=== PATIENT | female | born 1985 ===

== ENCOUNTER → 2018-03-01 | Outpatient (CLI) | payer BC ==
[~2018-03-01] MED LIST: AMIT75 PO; AMPYRA10 MG PO
[2018-03-01 16:16] LABS: Source, Urine Clean Catch
[2018-03-01 16:27] LABS: Appearance, Urine Clear (Clear); Bilirubin, Urine Neg (Neg); Blood, Urine Neg (Neg); Color, Urine Yellow (P-Yellow); Glucose Qualitative, Urine Neg (Neg); Ketones, Urine Neg (Neg); Leukocyte Esterase, Urine 1+ (Neg); Nitrite, Urine Neg (Neg); Protein, Urine Neg (Neg); Urobilinogen, Urine NORM (Normal); pH, Urine 6.5 (5.0-8.0)
[2018-03-01 16:35] LABS: Bacteria Few /hpf; Red Blood Cells, Urine 0-2 /hpf (0-2); Squamous Epithelial Cells Mod /hpf (Few)
== END | disposition home or self-care (01) ==
LOC: LAB 16:13 → LAB SHORT 16:13
PROVIDERS: Family Medicine
DX: R10.2 Pelvic and perineal pain (principal)
CPT/HCPCS: 81001; 87086; 87147

== ENCOUNTER → 2018-04-29 | Outpatient (CLI) | payer BC | LOC: LAB 11:35 → LAB SHORT 11:35 | DX: N39.0 Urinary tract infection, site not specified (principal) | CPT/HCPCS: 87086 ==

== ENCOUNTER → 2018-08-07 | Outpatient (CLI) | payer BC | END | disposition home or self-care (01) | LOC: LAB SHORT 16:57 → LAB 16:57 | DX: R30.0 Dysuria (principal) | CPT/HCPCS: 87077; 87086; 87186 ==

== ENCOUNTER → 2018-08-17 | Outpatient (CLI) | payer BC ==
[2018-08-18 15:01] LABS: Candida species (DNA Probe) Negative (NEGATIVE); G. vaginalis (DNA Probe) Negative (NEGATIVE); T. vaginalis (DNA Probe) Negative (NEGATIVE)
[2018-08-22 02:12] LABS: CHLAMYDIA TRACHOMATIS, NAA Negative (Negative); NEISSERIA GONORRHOEAE, NAA Negative (Negative)
== END ==
LOC: LAB 16:45 → LAB SHORT 16:45
PROVIDERS: Nurse Practitioner Family
DX: Z11.3 Encounter for screening for infections with a predominantly sexual mode of transmission (principal); N39.0 Urinary tract infection, site not specified; N89.8 Other specified noninflammatory disorders of vagina
CPT/HCPCS: 87077; 87086; 87186; 87480; 87491; 87510; 87591; 87660

== ENCOUNTER 2018-08-18 14:40 | Emergency (ER) | payer BC ==
[~2018-08-18] VITALS: Ht 160 cm; Wt 65.8 kg
[2018-08-18 15:19] LABS: BASOPHILS ABSOLUTE AUTO 0.03 K/mm3 (0.00-0.23); BASOPHILS PERCENT AUTO 1 % (0-2); EOSINOPHILS ABSOLUTE AUTO 0.05 K/mm3 (0.00-0.68); EOSINOPHILS PERCENT AUTO 1 % (0-6); Hematocrit 41.4 % (33.0-51.0); Hemoglobin 13.5 g/dL (11.5-16.0); IMMATURE GRAN ABSOLUTE AUTO 0.03 K/mm3 (0.00-0.10); IMMATURE GRAN PERCENT AUTO 1 % (0-1); LYMPHOCYTES ABSOLUTE AUTO 1.02 K/mm3 (0.84-5.20); LYMPHOCYTES PERCENT AUTO 19 % (21-46); MONOCYTES ABSOLUTE AUTO 0.52 K/mm3 (0.16-1.47); MONOCYTES PERCENT AUTO 10 % (4-13); Mean Corpuscular HGB 29.8 pg (26.0-34.0); Mean Corpuscular HGB Conc 32.6 g/dL (31.5-36.5); Mean Corpuscular Volume 91 fL (80-100); Mean Platelet Volume 10.6 fL (9.1-12.4); NEUTROPHILS ABSOLUTE AUTO 3.84 K/mm3 (1.96-9.15); NEUTROPHILS PERCENT AUTO 70 % (41-73); Platelet Count 244 K/mm3 (150-400); RDW Coefficient Variation 13.4 % (11.7-14.2); Red Blood Cell Count 4.53 M/mm3 (3.80-5.20); White Blood Cell Count 5.49 K/mm3 (4.00-11.30)
[2018-08-18 15:41] LABS: Alanine Aminotransfer (ALT/SGP 25 U/L (12-78); Albumin, Blood 3.8 g/dL (3.4-5.0); Albumin/Globulin Ratio 1.1 (0.8-1.8); Alk Phos 87 U/L (50-136); Anion Gap 10 mmol/L (6-16); Aspartate Aminotrans (AST/SGOT 21 U/L (12-37); Bilirubin, Total 0.4 mg/dL (0.1-1.0); Blood Urea Nitrogen 13 mg/dL (8-24); Bun/Creatinine Ratio 17.1 (12.0-20.0); CO2, Blood 24 mmol/L (21-32); Calcium, Blood 8.7 mg/dL (8.5-10.1); Chloride, Blood 105 mmol/L (98-108); Creatinine, Blood 0.76 mg/dL (0.40-1.00); Globulin, Blood 3.6 g/dL (2.2-4.0); Glomerular Filtration Rate >60 (60-); Glucose, Blood 96 mg/dL (70-99); Potassium, Blood 3.8 mmol/L (3.5-5.5); Sodium, Blood 139 mmol/L (136-145); Total Protein, Blood 7.4 g/dL (6.4-8.2)
[2018-08-18 15:59] LABS: Source, Urine Clean Catch
[2018-08-18 16:08] LABS: Appearance, Urine Hazy (Clear); Bilirubin, Urine Neg (Neg); Blood, Urine 1+ (Neg); Color, Urine Yellow (P-Yellow); Glucose Qualitative, Urine Neg (Neg); Ketones, Urine 4+ (Neg); Leukocyte Esterase, Urine 1+ (Neg); Nitrite, Urine Neg (Neg); Protein, Urine 2+ (Neg); Urobilinogen, Urine NORM (Normal)
[2018-08-18 16:20] LABS: Bacteria Few /hpf; Red Blood Cells, Urine 0-2 /hpf (0-2); Squamous Epithelial Cells Mod /hpf (Few)
== END 2018-08-18 17:20 | disposition home or self-care (01) ==
LOC: ER 14:40
PROVIDERS: Emergency Medicine
DX: R00.0 Tachycardia, unspecified (principal); N39.0 Urinary tract infection, site not specified; I05.0 Rheumatic mitral stenosis; Z88.0 Allergy status to penicillin; Z91.040 Latex allergy status; Z79.899 Other long term (current) drug therapy
CPT/HCPCS: 36415; 80053; 81001; 83605; 84484; 85025; 87077; 87086; 87186; 93005; 93010; 96360; 99283-25; J7030

== ENCOUNTER → 2018-09-24 | Outpatient (CLI) | payer BC | END | disposition home or self-care (01) | LOC: LAB 10:18 → LAB SHORT 10:18 | DX: N39.0 Urinary tract infection, site not specified (principal) | CPT/HCPCS: 87086 ==

== ENCOUNTER → 2018-11-02 | Outpatient (CLI) | payer BC | LOC: LAB 13:00 → LAB SHORT 13:00 | DX: N39.0 Urinary tract infection, site not specified (principal) | CPT/HCPCS: 87077; 87086; 87186 ==

== ENCOUNTER → 2019-01-20 | Outpatient (CLI) | payer BC | LOC: LAB 12:00 → LAB SHORT 12:00 | DX: R30.0 Dysuria (principal) | CPT/HCPCS: 87086 ==

== ENCOUNTER → 2019-06-26 | Outpatient (CLI) | payer BC ==
[2019-06-28 13:07] LABS: HPV 16 Negative (Negative); HPV 18 Negative (Negative); HPV OTHER HR TYPES Negative (Negative)
== END | disposition home or self-care (01) ==
LOC: LAB 19:49 → LAB SHORT 19:49
PROVIDERS: Nurse Practitioner Women's Health
DX: Z12.4 Encounter for screening for malignant neoplasm of cervix (principal)
CPT/HCPCS: 87624; G0123

== ENCOUNTER → 2019-09-03 | Outpatient (CLI) | payer BC ==
[2019-09-03 17:40] LABS: Source, Urine Clean Catch
[2019-09-03 18:28] LABS: Blood, Urine 1+ (Neg); Glucose Qualitative, Urine Neg (Neg); Ketones, Urine 1+ (Neg); Leukocyte Esterase, Urine 3+ (Neg); Nitrite, Urine Pos (Neg); Protein, Urine 2+ (Neg); Urobilinogen, Urine 4+ (Normal); pH, Urine 6.5 (5.0-8.0)
[2019-09-03 18:38] LABS: Appearance, Urine Hazy (Clear); Bilirubin, Urine 3+ (Neg); Color, Urine Orange (P-Yellow)
[2019-09-03 18:39] LABS: Triple Phosphate Crystals Few /hpf; White Blood Cells, Urine TNTC /hpf (0-5)
[2019-09-03 18:40] LABS: Bacteria Many /hpf; Squamous Epithelial Cells Few /hpf (Few)
== END ==
LOC: LAB 17:39 → LAB SHORT 17:39 → LAB FUT 09-03 15:15
PROVIDERS: Physician Assistant
DX: N39.0 Urinary tract infection, site not specified (principal)
CPT/HCPCS: 81001; 87077; 87086; 87186

== ENCOUNTER → 2019-09-26 | Outpatient (CLI) | payer BC | END | disposition home or self-care (01) | LOC: LAB SHORT 07:00 → LAB 07:00 | DX: Z09 Encounter for follow-up examination after completed treatment for conditions other than malignant neoplasm (principal); Z87.440 Personal history of urinary (tract) infections | CPT/HCPCS: 87077; 87086; 87186 ==

== ENCOUNTER 2019-11-03 15:43 | Day surgery (SDC) | payer BC ==
[2019-11-03] MEDS ORDERED: ACYC800 PO (16:05)
[2019-11-03] MEDS ORDERED: TRAM50 PO (16:06)
[2019-11-03] MEDS ORDERED: DIPH50 PO (16:06)
[2019-11-03] MEDS ORDERED: CENTRUM FLAVOR1 EAC1 PO (16:07)
[2019-11-03] MEDS ORDERED: B Complex-Foli1 EACH PO (16:07)
[2019-11-03] MEDS ORDERED: TIZA4 PO (16:08)
[2019-11-03] MEDS ORDERED: OXYB5 PO ×2 (16:08→16:09)
[2019-11-03] MEDS ORDERED: FLUC100 PO (16:10)
== END 2019-11-03 15:56 | disposition home or self-care (01) ==
LOC: ATC 15:43
DX: N39.0 Urinary tract infection, site not specified (principal); B96.20 Unspecified Escherichia coli [E. coli] as the cause of diseases classified elsewhere; N31.9 Neuromuscular dysfunction of bladder, unspecified; G35 Multiple sclerosis; Z79.2 Long term (current) use of antibiotics; Z79.899 Other long term (current) drug therapy; Z88.1 Allergy status to other antibiotic agents; Z88.0 Allergy status to penicillin; Z88.2 Allergy status to sulfonamides; Z88.8 Allergy status to other drugs, medicaments and biological substances; Z91.040 Latex allergy status
CPT/HCPCS: 96372; J0696

== ENCOUNTER 2019-11-04 00:15 | Day surgery (SDC) | payer BC ==
[~2019-11-04 00:15] MED LIST changes: +ACYC800 PO; +B Complex-Foli1 EACH PO; +CENTRUM FLAVOR1 EAC1 PO; +DIPH50 PO; +FLUC100 PO; +OXYB5 PO; +TIZA4 PO; +TRAM50 PO
== END 2019-11-04 14:51 | disposition home or self-care (01) ==
LOC: ATC 00:15
DX: N39.0 Urinary tract infection, site not specified (principal); B96.20 Unspecified Escherichia coli [E. coli] as the cause of diseases classified elsewhere; N31.9 Neuromuscular dysfunction of bladder, unspecified; G35 Multiple sclerosis; Z79.2 Long term (current) use of antibiotics; Z79.899 Other long term (current) drug therapy; Z88.1 Allergy status to other antibiotic agents; Z88.0 Allergy status to penicillin; Z88.2 Allergy status to sulfonamides; Z88.8 Allergy status to other drugs, medicaments and biological substances; Z91.040 Latex allergy status
CPT/HCPCS: 96372; J0696

== ENCOUNTER 2019-11-05 14:16 | Day surgery (SDC) | payer BC ==
[2019-11-06] MEDS ORDERED: Ultram50 MG PO (16:27)
[2019-11-06] MEDS ORDERED: Percocet 5-3251 EACH PO (16:27)
[2019-11-06] MEDS ORDERED: ONDA4ODT MM (16:27)
== END 2019-11-05 14:50 | disposition home or self-care (01) ==
LOC: ATC 14:16
DX: N39.0 Urinary tract infection, site not specified (principal); B96.20 Unspecified Escherichia coli [E. coli] as the cause of diseases classified elsewhere; N31.9 Neuromuscular dysfunction of bladder, unspecified; G35 Multiple sclerosis; Z79.2 Long term (current) use of antibiotics; Z79.899 Other long term (current) drug therapy; Z88.0 Allergy status to penicillin; Z88.1 Allergy status to other antibiotic agents; Z91.040 Latex allergy status
CPT/HCPCS: 96372; J0696

== ENCOUNTER 2019-11-06 11:33 | Emergency (ER) | payer BC ==
[~2019-11-06] VITALS: Ht 160 cm; Wt 65.8 kg
[2019-11-06 12:28] LABS: Source, Urine Clean Catch
[2019-11-06 12:33] LABS: Appearance, Urine Hazy (Clear); Bilirubin, Urine Neg (Neg); Blood, Urine 5+ (Neg); Color, Urine Yellow (P-Yellow); Glucose Qualitative, Urine Neg (Neg); Ketones, Urine 3+ (Neg); Leukocyte Esterase, Urine 1+ (Neg); Nitrite, Urine Neg (Neg); Protein, Urine 2+ (Neg); Specific Gravity, Urine 1.015 (1.003-1.022); Urobilinogen, Urine 1+ (Normal); pH, Urine 6.5 (5.0-8.0)
[2019-11-06 12:47] LABS: Bacteria Mod /hpf; Squamous Epithelial Cells Many /hpf (Few)
[2019-11-06 13:43] LABS: BASOPHILS ABSOLUTE AUTO 0.03 K/mm3 (0.00-0.23); BASOPHILS PERCENT AUTO 1 % (0-2); EOSINOPHILS ABSOLUTE AUTO 0.03 K/mm3 (0.00-0.68); EOSINOPHILS PERCENT AUTO 1 % (0-6); Hematocrit 45.8 % (33.0-51.0); Hemoglobin 14.5 g/dL (11.5-16.0); IMMATURE GRAN ABSOLUTE AUTO 0.01 K/mm3 (0.00-0.10); IMMATURE GRAN PERCENT AUTO 0 % (0-1); LYMPHOCYTES ABSOLUTE AUTO 1.01 K/mm3 (0.84-5.20); LYMPHOCYTES PERCENT AUTO 16 % (21-46); MONOCYTES ABSOLUTE AUTO 0.45 K/mm3 (0.16-1.47); MONOCYTES PERCENT AUTO 7 % (4-13); Mean Corpuscular HGB 30.9 pg (26.0-34.0); Mean Corpuscular HGB Conc 31.7 g/dL (31.5-36.5); Mean Corpuscular Volume 98 fL (80-100); Mean Platelet Volume 11.3 fL (9.1-12.4); NEUTROPHILS ABSOLUTE AUTO 4.95 K/mm3 (1.96-9.15); NEUTROPHILS PERCENT AUTO 76 % (41-73); Platelet Count 199 K/mm3 (150-400); RDW Coefficient Variation 13.1 % (11.7-14.2); RDW Standard Deviation 46.3 fL (35.1-46.3); Red Blood Cell Count 4.69 M/mm3 (3.80-5.20); White Blood Cell Count 6.48 K/mm3 (4.00-11.30)
[2019-11-06 14:01] LABS: Alanine Aminotransfer (ALT/SGP 26 U/L (12-78); Albumin, Blood 3.8 g/dL (3.4-5.0); Albumin/Globulin Ratio 1.2 (0.8-1.8); Alk Phos 68 U/L (50-136); Anion Gap 7 mmol/L (6-16); Aspartate Aminotrans (AST/SGOT 16 U/L (12-37); Bilirubin, Total 0.3 mg/dL (0.1-1.0); Blood Urea Nitrogen 11 mg/dL (8-24); Bun/Creatinine Ratio 16.9 (12.0-20.0); CO2, Blood 25 mmol/L (21-32); Calcium, Blood 8.7 mg/dL (8.5-10.1); Chloride, Blood 111 mmol/L (98-108); Creatinine, Blood 0.65 mg/dL (0.40-1.00); Globulin, Blood 3.1 g/dL (2.2-4.0); Glomerular Filtration Rate >60 (60-); Glucose, Blood 78 mg/dL (70-99); Sodium, Blood 143 mmol/L (136-145); Total Protein, Blood 6.9 g/dL (6.4-8.2)
[2019-11-06] MEDS ORDERED: Percocet 5-3251 EACH PO (16:27)
[2019-11-06] MEDS ORDERED: ONDA4ODT MM (16:27)
[2019-11-06] MEDS ORDERED: Ultram50 MG PO (16:27)
== END 2019-11-06 16:43 | disposition home or self-care (01) ==
LOC: ER 11:33
PROVIDERS: Physician Assistant
DX: R10.9 Unspecified abdominal pain (principal); G35 Multiple sclerosis; Z88.0 Allergy status to penicillin; Z91.040 Latex allergy status; Z88.2 Allergy status to sulfonamides; Z88.8 Allergy status to other drugs, medicaments and biological substances; Z79.899 Other long term (current) drug therapy
CPT/HCPCS: 36415; 74176; 76770; 80053; 81001; 85025; 87077; 87086; 87186; 96365; 96374; 96375; 99284-25; J0696; J1170; J2405

== ENCOUNTER 2020-03-14 00:36 | Day surgery (SDC) | payer BC ==
[~2020-03-14 00:36] MED LIST changes: +ONDA4ODT MM; +Percocet 5-3251 EACH PO; +Ultram50 MG PO
[2020-03-15] MEDS ORDERED: ERTAPENEM1 GM IV (09:52)
== END 2020-03-14 15:32 | disposition home or self-care (01) ==
LOC: ATC 00:36
DX: N39.0 Urinary tract infection, site not specified (principal); Z88.0 Allergy status to penicillin; Z88.6 Allergy status to analgesic agent; Z88.1 Allergy status to other antibiotic agents; Z91.040 Latex allergy status
CPT/HCPCS: J1335

== ENCOUNTER 2020-03-15 00:10 | Day surgery (SDC) | payer BC ==
[2020-03-15] MEDS ORDERED: ERTAPENEM1 GM IV (09:52)
== END 2020-03-15 09:46 | disposition home or self-care (01) ==
LOC: ATC 00:10
DX: N39.0 Urinary tract infection, site not specified (principal); N39.41 Urge incontinence; Z88.6 Allergy status to analgesic agent; Z87.440 Personal history of urinary (tract) infections; Z88.0 Allergy status to penicillin; Z88.8 Allergy status to other drugs, medicaments and biological substances; Z91.040 Latex allergy status; N26.1 Atrophy of kidney (terminal)
CPT/HCPCS: 96365; J1335

== ENCOUNTER 2020-03-17 00:07 | Day surgery (SDC) | payer BC ==
[~2020-03-17 00:07] MED LIST changes: +ERTAPENEM1 GM IV
== END 2020-03-17 11:33 | disposition home or self-care (01) ==
LOC: ATC 00:07
DX: N39.0 Urinary tract infection, site not specified (principal); N26.1 Atrophy of kidney (terminal); Z88.2 Allergy status to sulfonamides; Z88.8 Allergy status to other drugs, medicaments and biological substances; Z88.6 Allergy status to analgesic agent; Z91.040 Latex allergy status; Z88.0 Allergy status to penicillin; Z87.440 Personal history of urinary (tract) infections; N39.41 Urge incontinence
CPT/HCPCS: J1335

== ENCOUNTER 2020-03-20 00:05 | Day surgery (SDC) | payer BC | END 2020-03-20 11:55 | disposition home or self-care (01) | LOC: ATC 00:05 | DX: N39.0 Urinary tract infection, site not specified (principal); G35 Multiple sclerosis; N26.1 Atrophy of kidney (terminal); Z79.899 Other long term (current) drug therapy; Z88.0 Allergy status to penicillin; Z88.2 Allergy status to sulfonamides; Z88.6 Allergy status to analgesic agent; Z88.1 Allergy status to other antibiotic agents; Z91.040 Latex allergy status; Z87.440 Personal history of urinary (tract) infections; N39.41 Urge incontinence | CPT/HCPCS: 96365; J1335; J7030 ==

== ENCOUNTER 2020-07-25 14:45 | Day surgery (SDC) | payer BC ==
[~2020-07-25 14:45] MED LIST changes: -B Complex-Foli1 EACH PO; -CENTRUM FLAVOR1 EAC1 PO; -ERTAPENEM1 GM IV; +INVANZ1 G1 IV; +MULTI-VITAMIN1 EAC2 PO; +Vitamin B Comple1 EA PO
== END 2020-07-25 16:53 | disposition home or self-care (01) ==
LOC: ATC 14:45
DX: N39.0 Urinary tract infection, site not specified (principal); G35 Multiple sclerosis; N31.9 Neuromuscular dysfunction of bladder, unspecified; Z88.6 Allergy status to analgesic agent; Z88.1 Allergy status to other antibiotic agents; Z88.2 Allergy status to sulfonamides; Z79.899 Other long term (current) drug therapy; Z88.0 Allergy status to penicillin; Z91.040 Latex allergy status; Z87.440 Personal history of urinary (tract) infections
CPT/HCPCS: 96365; J1335

== ENCOUNTER 2020-07-27 06:48 | Day surgery (SDC) | payer BC | END 2020-07-27 09:27 | disposition home or self-care (01) | LOC: ATC 06:48 | DX: N39.0 Urinary tract infection, site not specified (principal); N31.9 Neuromuscular dysfunction of bladder, unspecified; Z88.1 Allergy status to other antibiotic agents; Z88.0 Allergy status to penicillin; Z88.8 Allergy status to other drugs, medicaments and biological substances; Z91.040 Latex allergy status; Z79.899 Other long term (current) drug therapy | CPT/HCPCS: 96365; J1335 ==

== ENCOUNTER 2020-07-28 00:52 | Day surgery (SDC) | payer BC | END 2020-07-28 09:27 | disposition home or self-care (01) | LOC: ATC 00:52 | DX: N39.0 Urinary tract infection, site not specified (principal); G35 Multiple sclerosis; Z87.440 Personal history of urinary (tract) infections; N31.9 Neuromuscular dysfunction of bladder, unspecified; Z88.0 Allergy status to penicillin; Z88.6 Allergy status to analgesic agent; Z88.1 Allergy status to other antibiotic agents; Z91.040 Latex allergy status; Z79.899 Other long term (current) drug therapy | CPT/HCPCS: 96365; J1335 ==

== ENCOUNTER 2020-07-29 00:26 | Day surgery (SDC) | payer BC ==
--- NOTE | 2020-07-29 16:22 | NUR ---
COULD NOT ADVANCE, MIROSLAVA BARTLETT WAS SUCCESSFUL WITH POWER GLIDE
== END 2020-07-29 15:59 | disposition home or self-care (01) ==
LOC: ATC 00:26
DX: N39.0 Urinary tract infection, site not specified (principal); N31.9 Neuromuscular dysfunction of bladder, unspecified; N39.41 Urge incontinence; Z87.440 Personal history of urinary (tract) infections; Z88.2 Allergy status to sulfonamides; Z88.6 Allergy status to analgesic agent; Z88.1 Allergy status to other antibiotic agents; Z91.040 Latex allergy status
CPT/HCPCS: 96365; C1751; J1335

== ENCOUNTER 2020-07-30 00:23 | Day surgery (SDC) | payer BC | END 2020-07-30 14:10 | disposition home or self-care (01) | LOC: ATC 00:23 | DX: N39.0 Urinary tract infection, site not specified (principal); N31.9 Neuromuscular dysfunction of bladder, unspecified; G35 Multiple sclerosis; N39.41 Urge incontinence; Z88.0 Allergy status to penicillin; Z88.2 Allergy status to sulfonamides; Z88.6 Allergy status to analgesic agent; Z88.1 Allergy status to other antibiotic agents; Z91.040 Latex allergy status; Z87.440 Personal history of urinary (tract) infections; Z79.899 Other long term (current) drug therapy | CPT/HCPCS: 96365; J1335 ==

== ENCOUNTER 2020-07-31 00:06 | Day surgery (SDC) | payer BC | END 2020-07-31 17:10 | disposition home or self-care (01) | LOC: ATC 00:06 | DX: N39.0 Urinary tract infection, site not specified (principal); Z88.0 Allergy status to penicillin; Z88.6 Allergy status to analgesic agent; Z88.2 Allergy status to sulfonamides; Z88.1 Allergy status to other antibiotic agents; Z87.440 Personal history of urinary (tract) infections; G35 Multiple sclerosis; Z79.899 Other long term (current) drug therapy; Z91.040 Latex allergy status; N31.9 Neuromuscular dysfunction of bladder, unspecified; N39.41 Urge incontinence | CPT/HCPCS: 96365; J1335 ==

== ENCOUNTER 2020-08-01 00:39 | Day surgery (SDC) | payer BC | END 2020-08-01 16:40 | disposition home or self-care (01) | LOC: ATC 00:39 | DX: N39.0 Urinary tract infection, site not specified (principal); G35 Multiple sclerosis; N31.9 Neuromuscular dysfunction of bladder, unspecified; Z88.1 Allergy status to other antibiotic agents; Z88.0 Allergy status to penicillin; Z91.040 Latex allergy status | CPT/HCPCS: 96365; J1335 ==

== ENCOUNTER 2020-08-02 00:12 | Day surgery (SDC) | payer BC | END 2020-08-02 08:25 | disposition home or self-care (01) | LOC: ATC 00:12 | DX: N39.0 Urinary tract infection, site not specified (principal); N31.9 Neuromuscular dysfunction of bladder, unspecified; N39.41 Urge incontinence; Z87.440 Personal history of urinary (tract) infections; Z88.2 Allergy status to sulfonamides; Z88.6 Allergy status to analgesic agent; Z88.1 Allergy status to other antibiotic agents; Z91.040 Latex allergy status | CPT/HCPCS: 96365; J1335 ==

== ENCOUNTER 2020-08-03 00:11 | Day surgery (SDC) | payer BC | END 2020-08-03 08:05 | disposition home or self-care (01) | LOC: ATC 00:11 | DX: N39.0 Urinary tract infection, site not specified (principal); N31.9 Neuromuscular dysfunction of bladder, unspecified; N39.41 Urge incontinence; Z87.440 Personal history of urinary (tract) infections; Z88.2 Allergy status to sulfonamides; Z88.6 Allergy status to analgesic agent; Z88.1 Allergy status to other antibiotic agents; Z91.040 Latex allergy status | CPT/HCPCS: 96365; J1335 ==

== ENCOUNTER 2021-11-07 08:30 | Day surgery (SDC) | payer BC ==
[~2021-11-07 08:30] MED LIST changes: +DULO60 PO; +MYRBETRIQ25 MG PO; +VUMERITY231 MG PO
== END 2021-11-07 09:09 | disposition home or self-care (01) ==
LOC: ATC 08:30
DX: N39.0 Urinary tract infection, site not specified (principal); Z88.1 Allergy status to other antibiotic agents; Z88.0 Allergy status to penicillin; Z91.040 Latex allergy status
CPT/HCPCS: J1335

== ENCOUNTER 2021-11-08 09:09 | Day surgery (SDC) | payer BC, MEDICARE | END 2021-11-08 09:45 | disposition home or self-care (01) | LOC: ATC 09:09 | DX: N39.0 Urinary tract infection, site not specified (principal); Z88.0 Allergy status to penicillin; Z88.1 Allergy status to other antibiotic agents; Z88.8 Allergy status to other drugs, medicaments and biological substances; Z91.040 Latex allergy status | CPT/HCPCS: 96365; J1335 ==

== ENCOUNTER 2021-11-09 03:24 | Day surgery (SDC) | payer BC, MEDICARE | END 2021-11-09 08:59 | disposition home or self-care (01) | LOC: ATC 03:24 | DX: N39.0 Urinary tract infection, site not specified (principal); Z88.1 Allergy status to other antibiotic agents; Z88.0 Allergy status to penicillin; Z88.8 Allergy status to other drugs, medicaments and biological substances | CPT/HCPCS: 96365; J1335 ==

== ENCOUNTER 2021-11-10 04:13 | Day surgery (SDC) | payer BC, MEDICARE | END 2021-11-10 08:21 | disposition home or self-care (01) | LOC: ATC 04:13 | DX: N39.0 Urinary tract infection, site not specified (principal); Z88.1 Allergy status to other antibiotic agents; Z88.0 Allergy status to penicillin; Z88.8 Allergy status to other drugs, medicaments and biological substances | CPT/HCPCS: 96365; J1335 ==

== ENCOUNTER 2021-11-12 00:24 | Day surgery (SDC) | payer BC, MEDICARE ==
--- NOTE | 2021-11-12 09:03 | NUR ---
PAYAN CATH BAG CHANGED.
== END 2021-11-12 09:18 | disposition home or self-care (01) ==
LOC: ATC 00:24
DX: N39.0 Urinary tract infection, site not specified (principal); Z88.0 Allergy status to penicillin; Z88.1 Allergy status to other antibiotic agents; Z88.8 Allergy status to other drugs, medicaments and biological substances; Z91.040 Latex allergy status
CPT/HCPCS: 96365; J1335

== ENCOUNTER 2021-11-13 00:27 | Day surgery (SDC) | payer BC, MEDICARE | END 2021-11-13 09:20 | disposition home or self-care (01) | LOC: ATC 00:27 | DX: N39.0 Urinary tract infection, site not specified (principal); Z88.0 Allergy status to penicillin; Z88.1 Allergy status to other antibiotic agents; Z88.8 Allergy status to other drugs, medicaments and biological substances; Z91.040 Latex allergy status | CPT/HCPCS: 96365; J1335 ==

== ENCOUNTER 2021-11-15 08:36 | Day surgery (SDC) | payer BC, MEDICARE ==
--- NOTE | 2021-11-15 09:09 | NUR ---
PT HAD MID TREATMENT CATHETER CHANGE ON TUESDAY. NORMAL CATHETER CHANGES FOR PT ARE EVERY 2 WEEKS PER SPOUSE. SPOUSE STATES THEY HAVE AN APPOINTMENT SCHEDULED TWO WEEKS OUT FROM OUR MID TREATMENT CATHETER CHANGE AT UROLOGY FOR A CATHETER CHANGE AND UA. NO CATHETER CHANGE OR UA TAKEN TODAY AGREED UPON FROM SPOUSE AND PATIENT. MD ORDER STATES TO LEAVE EXTENDED DWELLING IV CATHETER IN PLACE UNTIL FINAL UA COMPLETED, BUT SPOUSE AND PATIENT REQUEST THAT IT BE REMOVED AND A NEW ONE PLACED DOWN THE ROAD IF NEEEDED.
== END 2021-11-15 09:30 | disposition home or self-care (01) ==
LOC: ATC 08:36
DX: N39.0 Urinary tract infection, site not specified (principal)
CPT/HCPCS: 96365; J1335

== ENCOUNTER 2023-07-12 18:58 | Emergency (ER) | payer OTHER, MEDICARE ==
[~2023-07-12] VITALS: Ht 160 cm; Wt 65.8 kg
[2023-07-12 19:05] VITALS: BP 128/93
[2023-07-12 19:25] LABS: BASOPHILS ABSOLUTE AUTO 0.05 K/mm3 (0.00-0.23); BASOPHILS PERCENT AUTO 1 % (0-2); EOSINOPHILS ABSOLUTE AUTO 0.09 K/mm3 (0.00-0.68); EOSINOPHILS PERCENT AUTO 1 % (0-6); Hematocrit 44.7 % (33.0-51.0); Hemoglobin 14.5 g/dL (11.5-16.0); IMMATURE GRAN ABSOLUTE AUTO 0.04 K/mm3 (0.00-0.10); IMMATURE GRAN PERCENT AUTO 1 % (0-1); LYMPHOCYTES ABSOLUTE AUTO 1.81 K/mm3 (0.84-5.20); LYMPHOCYTES PERCENT AUTO 21 % (21-46); MONOCYTES ABSOLUTE AUTO 0.51 K/mm3 (0.16-1.47); MONOCYTES PERCENT AUTO 6 % (4-13); Mean Corpuscular HGB 29.5 pg (26.0-34.0); Mean Corpuscular HGB Conc 32.4 g/dL (31.5-36.5); Mean Corpuscular Volume 91 fL (80-100); Mean Platelet Volume 10.8 fL (9.1-12.4); NEUTROPHILS ABSOLUTE AUTO 6.03 K/mm3 (1.96-9.15); NEUTROPHILS PERCENT AUTO 71 % (41-73); Platelet Count 266 K/mm3 (150-400); RDW Standard Deviation 46.8 fL (35.1-46.3); Red Blood Cell Count 4.92 M/mm3 (3.80-5.20); White Blood Cell Count 8.53 K/mm3 (4.00-11.30)
[2023-07-12 19:42] LABS: Albumin, Blood 3.7 g/dL (3.4-5.0); Bilirubin, Total 0.2 mg/dL (0.1-1.0); Bun/Creatinine Ratio 14.1 (12.0-20.0); Creatinine, Blood 0.71 mg/dL (0.40-1.00); Globulin, Blood 3.8 g/dL (2.2-4.0); Total Protein, Blood 7.5 g/dL (6.4-8.2)
[2023-07-12] MEDS ORDERED: ONDA4 PO (22:07)
[2023-07-12] MEDS ORDERED: LACT10SY PO (22:07)
[2023-07-12] MEDS ORDERED: BISA5EC PO (22:08)
== END 2023-07-12 22:23 | disposition home or self-care (01) ==
LOC: ER 18:58
PROVIDERS: Student in an Organized Health Care Education/Training Program
DX: K59.00 Constipation, unspecified (principal); K80.20 Calculus of gallbladder without cholecystitis without obstruction; Z88.0 Allergy status to penicillin; Z88.2 Allergy status to sulfonamides; Z91.040 Latex allergy status; Z88.1 Allergy status to other antibiotic agents; Z88.8 Allergy status to other drugs, medicaments and biological substances; Z79.899 Other long term (current) drug therapy
CPT/HCPCS: 76705; 80053; 83690; 85025; 96374; 99284-25; J1885